=== PATIENT | female | born 1935 | race Caucasian/White ===

== ENCOUNTER 2019-07-23 11:21 | Emergency (ER) | payer OTHER ==
[~2019-07-23] VITALS: Ht 165.1 cm; Wt 40.8 kg
[2019-07-23 11:36] VITALS: Ht 165.1 cm; Wt 40.8 kg
[2019-07-23 16:05] VITALS: BP 131/65
== END 2019-07-23 16:05 | disposition home or self-care (01) ==
LOC: ED 11:21
DX: M54.40 Lumbago with sciatica, unspecified side (principal)